=== PATIENT | female | born 1990 | race Caucasian/White ===

== ENCOUNTER → 2017-06-05 | Outpatient (CLI) | payer MEDICAID ==
--- NOTE | 2017-06-05 17:35 | RADIOLOGY REPORT (SQ) ---
EXAM DESCRIPTION: U/S OB 14+ TA/1 GEST W/DOPPLER COMPLETED DATE/TIME: 06/05/2017 5:20 pm REASON FOR STUDY: THREATENED O20.0 THREATENED COMPARISON: None. TECHNIQUE: Static and Dynamic grayscale imaging performed of gravid uterus using transabdominal appr oach. Additional selected color Doppler and spectral images recorded. All stored on PACS. LIMITATIONS: Anatomy evaluation limited by early gestational age. FINDINGS: EGA: 14 weeks 2 days MARKEL: 12/02/2017 EFW: Not calculated PERCENTILE: Not applicable. Fetus less than or equal to [address]: Adequate amount. PLACENTA: Posterior with marginal previa. PRESENTATION: Variable. HEART RATE: 165 beats per minute. MATERNAL ADNEXA: Maternal ovaries not visualized. CERVICAL LENGTH: 3.9 cm. Closed. OTHER: No other significant finding. IMPRESSION: LIVING INTRAUTERINE . ESTIMATED GESTATIONAL AGE 14 WEEKS 2 DAYS WHICH IS CONSISTENT WITH DATES. NO VISUALIZED ANOMALIES HOWEVER RECOMMEND FORMAL ANATOMIC SURVEY BETWEEN 20 AND 22 WEEKS GESTATIONAL AGE. Trimester of : Second trimester - 13 weeks 1 day to 27 weeks 6 days. TECHNICAL DOCUMENTATION: JOB ID: [id number] [employer]- All Rights Reserved
== END ==
LOC: RAD 15:56
PROVIDERS: ATTEND Nurse Practitioner Women's Health
DX: O20.9 Hemorrhage in early pregnancy, unspecified (principal)
CPT/HCPCS: 76805; 93976

== ENCOUNTER 2017-11-22 06:12 | Inpatient (IN) | payer MEDICAID ==
[2017-11-21 14:13] LABS: ABSOLUTE BASOPHILS # (AUTO) 0.1 10^3/uL (0.0-0.2); ABSOLUTE EOSINOPHILS # (AUTO) 0.1 10^3/uL (0.0-0.6); ABSOLUTE LYMPHOCYTES (AUTO) 1.6 10^3/uL (0.5-4.7); ABSOLUTE MONOCYTES (AUTO) 0.6 10^3/uL (0.1-1.4); ABSOLUTE NEUT (AUTO) 6.3 10^3/uL (1.7-8.2); BASOPHILS % (AUTO) 0.6 % (0-2); EOSINOPHILS % (AUTO) 0.8 % (0-6); HEMATOCRIT 30.5 % (36.0-47.0); HEMOGLOBIN 10.4 g/dL (12.0-15.5); LYMPHOCYTES % (AUTO) 18.8 % (13-45); MEAN CORPUSCULAR HEMOGLOBIN 27.7 pg (27.0-33.4); MEAN CORPUSCULAR HGB CONC 34.2 g/dL (32.0-36.0); MEAN CORPUSCULAR VOLUME 81 fl (80-97); PLATELET COUNT 228 10^3/uL (150-450); RED BLOOD COUNT 3.77 10^6/uL (3.72-5.28); RED CELL DISTRIBUTION WIDTH 13.2 % (11.5-14.0); SEGMENTED NEUTROPHILS % (AUTO) 72.8 % (42-78); TOTAL CELLS COUNTED % (AUTO) 100 %; WHITE BLOOD COUNT 8.7 10^3/uL (4.0-10.5)
[2017-11-21 14:20] LABS: APPEARANCE,URINE CLEAR; BILIRUBIN,URINE NEGATIVE (NEGATIVE); COLOR,URINE STRAW; GLUCOSE, URINE NEGATIVE (NEGATIVE); KETONES,URINE NEGATIVE (NEGATIVE); LEUKOCYTE ESTERASE,URINE NEGATIVE (NEGATIVE); NITRITE,URINE NEGATIVE (NEGATIVE); PROTEIN,URINE NEGATIVE (NEGATIVE); URINE SPECIFIC GRAVITY 1.003; UROBILINOGEN,URINE NEGATIVE mg/dL (<2.0)
[2017-11-21 14:41] LABS: URINE AMPHETAMINES SCREEN NEGATIVE; URINE BARBITURATES SCREEN NEGATIVE; URINE BENZODIAZEPINES SCREEN NEGATIVE; URINE COCAINE SCREEN NEGATIVE; URINE MARIJUANA (THC) SCREEN NEGATIVE; URINE METHADONE SCREEN NEGATIVE; URINE PHENCYCLIDINE SCREEN NEGATIVE
[~2017-11-22 06:12] MED LIST: CEFAZOLIN 1 GM/D5W RTU 1 GM/50 ML RTUPB IV PRN; LACTATED RINGERS 1000 ML IV PRN; LIDOCAINE 0.5% INJ-PF (5 MG/ML) 50 ML SDV SUBCUT PRN; RINGERS SOLUTION,LACTATED 1,000 ML IV PRN
[2017-11-22] MEDS: AZITHROMYCIN 500 MG in DEXTROSE 5%-WATER 250 ML IV PRN ×2 (07:39→08:30)
[2017-11-22] MEDS ORDERED: MORPHINE SULFATE 10 MG/ML INJ IV PRN (07:48)
[2017-11-22] MEDS ORDERED: FENTANYL CITRATE INJ/PF 100 MCG/2 ML AMPUL IV PRN ×3 (07:48)
[2017-11-22] MEDS ORDERED: PROMETHAZINE HCL INJ 25 MG/1 ML VIAL IV PRN (07:48)
[2017-11-22] MEDS ORDERED: DIPHENHYDRAMINE HCL 50 MG/ML VIAL IV PRN (07:48)
[2017-11-22] MEDS ORDERED: CITRIC ACID/SODIUM CITRATE ORAL SOLN 15 ML UDCUP ONE (08:34)
[2017-11-22] MEDS ORDERED: OXYTOCIN 10 UNIT/ML VIAL ONE (08:34)
[2017-11-22] MEDS ORDERED: MIDAZOLAM 2 MG/2 ML INJ ONE (08:34)
[2017-11-22] MEDS ORDERED: PHENYLEPHRINE HCL INJ/PF 10 MG/1 ML SDV ONE (08:35)
[2017-11-22] MEDS ORDERED: EPHEDRINE SULFATE INJ 50 MG/1 ML AMPULE ONE (08:35)
[2017-11-22] MEDS ORDERED: ONDANSETRON HCL INJ/PF 4 MG/2 ML SDV ONE (08:35)
[2017-11-22] MEDS ORDERED: ACETAMINOPHEN 100 ML IV ONE (08:35)
--- NOTE | 2017-11-22 09:50 | PDOC DELIVERY SUMMARY ---
Delivery Summary - Maternal Hx : IV Hx # Term Pregnancies: 3 MARKEL: 11/27/17 Gestational Age: 39 Ruptured Membranes: AROM Time of Rupture: 09:05 Fluids: Clear - Delivery Presentation: Vertex Heart Rate Monitoring: Done Pre-Operatively Support Person Present: Yes - PT'S MOTHER Location: OR : Scheduled, Repeat Placenta: Within Normal Limits Delivery of Placenta Date: 11/22/17 Delivery of Placenta Time: 09:06 - Medications Type of Anesthesia:: Spinal - Infant Assess and Care Baby 1 Male Delivery of Date: 11/22/17 Delivery of Infant Time: 09:05 at 1 minute: 8 at 5 minutes: 9 Preprinted Number On Band: [id number] Infant Skin to Skin: No Mode of Transport: Bassinet Delivery Weight: 3,415 Delivery Length: 20.5 in - Delivery Personnel Principal Process Engineer: DR TRISTA Selby RN: Jamie LIVE RN: FABIAN SUN MD: DEMETRIO GUZMAN
[2017-11-22] MEDS ORDERED: OXYTOCIN/NORMAL SALINE 20 UNIT/1,000 ML RTUINJ ONE (10:17)
--- NOTE | 2017-11-22 10:23 | OPERATIVE REPORT E ---
Operative Report NAME: IRA BROWN : 1990 AGE: 27Y DATE OF SURGERY: 11/22/2017 ROOM: 222 PREOPERATIVE DIAGNOSES: 1. IUP at term. 2. Repeat . 3. Desire for sterilization. POSTOPERATIVE DIAGNOSES: 1. IUP at term. 2. Repeat . 3. Desire for sterilization. 4. Multiple adhesions. OPERATION: Repeat low transverse and delivery of viable male, Apgars of 8 and 9, and a bilateral tubal ligation. SURGEON: Maria Luisa GUZMAN M.D. ESTIMATED BLOOD LOSS: Less than 300 mL. TISSUE REMOVED: Placenta and portion of tubes. ANESTHESIA: Spinal. PROCEDURE: The patient was placed in a supine position, rolled on her right side, and prepped and draped in a sterile fashion. Pfannenstiel incision was made through an existing Pfannenstiel eschar. Upon entering the fascia, it was firmly adherent to the anterior uterine wall. Space was made with careful dissection. The uterus nicked in midline and extended bilaterally. The infant was then delivered through the uterine-abdominal incision. Nose and mouth were suctioned with bulb syringe. The cord was clamped. The placenta was manually extracted. The uterus was closed in 2 layers, first a running stitch and second a Lembert stitch imbricating the first layer. Multiple bleeding sites were noted on the left side and controlled with multiple sutures of 2-0 Vicryl gfehhg-ov-aliew sutures. Attention was turned to the tubes. The overlying omentum and parietal peritoneum was carefully dissected until the right fallopian tube could be visualized. The right tube was grasped with the Lott clamp. A tied 0 plain was placed around a knuckle of tissue. A second tie placed again around the knuckle and the knuckle tissue was sharply excised. Hemostasis was noted. Left tube was extremely difficult to find. Again, with triple dissection of the peritoneum and omentum, the tube was identified. A tie of 0 plain was placed around knuckle of tissue after grasping tissue with the Everett clamp. A second tie was placed and a knuckle of tissue was sharply excised. Hemostasis was noted. Again the incision was visualized and there were multiple bleeding sites on the left. These were controlled with multiple mrigly-dc-wmeiv sutures of 2-0 Vicryl. Hemostasis was noted. A Gelfoam was placed on top. Hemostasis was also noted in the other sutured areas. The fascia was then closed with 0 Vicryl and the skin was closed with subcuticular absorbable giovanny. Patient tolerated well and was taken to the recovery room in good condition. Her urine remained clear throughout the procedure. The infant went to nursery in good condition. DICTATING PHYSICIAN: Maria Luisa GUZMAN M.D. [id number] Y#: [id number] ID: [id number] JOB#: [id number] ACCT: [id number] cc:Maria Luisa GUZMAN M.D. >
[2017-11-22] MEDS ORDERED: HYDROMORPHONE HCL INJ/PF 2 MG/ML AMPULE ONE (10:39)
[2017-11-22] MEDS ORDERED: OXYTOCIN/NORMAL SALINE 20 UNIT/1,000 ML RTUINJ INJ PRN (10:47)
[2017-11-22] MEDS ORDERED: DEXTROSE 5%-LACTATED RINGERS 1,000 ML IV PRN (10:48)
[2017-11-22] MEDS ORDERED: OXYCODONE-ACETAMINOPHEN 5-325 MG TABLET PO PRN (11:00)
[2017-11-22] MEDS ORDERED: MEASLES,MUMPS&RUBELLA VACC/PF 0.5 ML VIAL SUBCUT PRN (11:00)
[2017-11-22] MEDS ORDERED: SIMETHICONE 80 MG TAB.CHEW PO PRN (11:00)
[2017-11-22] MEDS ORDERED: ACETAMINOPHEN 325 MG TABLET PO PRN (11:00)
[2017-11-22] MEDS ORDERED: PROMETHAZINE HCL INJ 25 MG/1 ML VIAL IM PRN (11:00)
[2017-11-22] MEDS ORDERED: DIPH/PERTUSS(ACELL)/TETANUS VAC/PF 0.5 ML SYR (>=10YO) IM PRN (11:00)
[2017-11-22] MEDS ORDERED: HYDROMORPHONE HCL INJ/PF 2 MG/ML AMPULE IV PRN (11:00)
[2017-11-22] MEDS: OXYCODONE-ACETAMINOPHEN 5-325 MG TABLET PO PRN ×3 (13:43→22:41)
[2017-11-22] MEDS: DOCUSATE SODIUM 100 MG CAPSULE PO SCH (17:56)
[2017-11-23] MEDS: OXYCODONE-ACETAMINOPHEN 5-325 MG TABLET PO PRN (04:16)
[2017-11-23 06:53] LABS: HEMATOCRIT 24.3 % (36.0-47.0); MEAN CORPUSCULAR HEMOGLOBIN 27.3 pg (27.0-33.4); MEAN CORPUSCULAR HGB CONC 34.1 g/dL (32.0-36.0); MEAN CORPUSCULAR VOLUME 80 fl (80-97); PLATELET COUNT 188 10^3/uL (150-450); RED BLOOD COUNT 3.04 10^6/uL (3.72-5.28); RED CELL DISTRIBUTION WIDTH 13.3 % (11.5-14.0); WHITE BLOOD COUNT 10.1 10^3/uL (4.0-10.5)
[2017-11-23 07:01] LABS: HEMOGLOBIN 8.3 g/dL (12.0-15.5)
[2017-11-23] MEDS: DOCUSATE SODIUM 100 MG CAPSULE PO SCH ×2 (09:53→17:45)
[2017-11-23] MEDS: PRENATAL VITAMIN W DHA CAPSULE PO SCH (09:53)
--- NOTE | 2017-11-23 12:14 | PDOC PROGRESS REPORT ---
Subjective-OB Subjective: Post Delivery Day: 27 year old. Denies any needs at this time. wihout problems, tolerating diet, passing gas, bleeding slowing and pain controlled with current medications. Physical Exam (OB) Vital Signs: Temp Pulse Resp BP Pulse Ox 98.1 F 74 17 118/75 100 11/23/17 07:51 11/23/17 07:51 11/23/17 07:51 11/23/17 07:51 11/23/17 07:51 Intake & Output 11/22/17 11/23/17 11/24/17 06:59 06:59 06:59 Intake Total 640 Output Total 3000 Balance -2360 Weight 75 kg - Dressing Removed: No Incision: Dressing - dry and intact - Abdomen Description: Tender Hernia Present: No Fundal Description: Firm, Midline Describe if Not Midline: Deviated to right of umbilicus. Fundal Height: u/u - u/2 - Extremities Lower extremities: Lori's sign - neg Calf: Normal, Nontender Objective-Diagnostic Laboratory: 11/23/17 06:44 11/23/17 11/23/17 06:44 06:44 WBC 10.1 RBC 3.04 L Hgb 8.3 L D Hct 24.3 L MCV 80 MCH 27.3 MCHC 34.1 RDW 13.3 Plt Count 188 Blood Type O NEGATIVE Assessment and Plan(PN) - Assessment and Plan (1) delivery delivered Is this a current diagnosis for this admission?: Yes - Time Spent with Patient Time with patient: Less than 15 minutes - Disposition Anticipated Discharge: Home Within: within 24 hours
[2017-11-23] MEDS: IBUPROFEN 800 MG TABLET PO SCH ×2 (12:50→17:44)
[2017-11-24] MEDS: IBUPROFEN 800 MG TABLET PO SCH ×3 (06:33→12:13)
[2017-11-24] MEDS: PRENATAL VITAMIN W DHA CAPSULE PO SCH (09:22)
[2017-11-24] MEDS: DOCUSATE SODIUM 100 MG CAPSULE PO SCH (09:22)
--- NOTE | 2017-11-24 13:34 | PDOC DISCHARGE SUMMARY ---
Final Diagnosis Discharge Date: 11/24/17 - Final Diagnosis (1) Status post repeat low transverse section Is this a current diagnosis for this admission?: Yes (2) Tubal ligation status Is this a current diagnosis for this admission?: Yes (3) Anemia complicating , third trimester Is this a current diagnosis for this admission?: Yes (4) Acute blood loss anemia Is this a current diagnosis for this admission?: Yes (5) delivery delivered Is this a current diagnosis for this admission?: Yes Discharge Data - Discharge Medication Prescriptions: Oxycodone HCl/Acetaminophen [Percocet 5-325 mg Tablet] 1 tab PO Q4HP PRN #20 tablet PRN Reason: Ibuprofen [Motrin 800 mg Tablet] 800 mg PO Q8HP PRN #60 tablet PRN Reason: Docusate Sodium [Colace 100 mg Capsule] 100 mg PO BID #60 capsule Ferrous Sulfate [Feosol 325 mg Tablet] 325 mg PO BID #60 tab Vit,Calc76/Iron/Folic [Prenatabs Rx Tablet] 1 each PO DAILY #30 tablet Home Medications: Docusate Sodium [Colace 100 mg Capsule] 100 mg PO BID #60 capsule 11/24/17 Ferrous Sulfate [Feosol 325 mg Tablet] 325 mg PO BID #60 tab 11/24/17 Ibuprofen [Motrin 800 mg Tablet] 800 mg PO Q8HP PRN #60 tablet 11/24/17 Oxycodone HCl/Acetaminophen [Percocet 5-325 mg Tablet] 1 tab PO Q4HP PRN #20 tablet 11/24/17 Vit,Calc76/Iron/Folic [Prenatabs Rx Tablet] 1 each PO DAILY #30 tablet 11/24/17 Reason(s) for Admission: Ceasarean Section-Repeat, Tubal Ligation Procedures: Ultrasound Intrapartum Procedure(s): : Low Cervical, Transverse, Tubal Ligation - Diagnosis Test Laboratory: Temp Pulse Resp BP Pulse Ox 98.6 F 89 17 113/69 99 11/24/17 08:03 11/24/17 08:03 11/24/17 08:03 11/24/17 08:03 11/24/17 08:03 11/21/17 11/21/17 11/23/17 13:45 13:58 06:44 RBC 3.77 3.04 L Hgb 10.4 L 8.3 L D Hct 30.5 L 24.3 L Urine Opiates Screen NEGATIVE - Discharge information/Instructions Discharge Activity: Activity As Tolerated, Balance Activity w/Rest, No Lifting Over 10 Pounds, Pelvic Rest, No tub bath, Walk Frequently Discharge Diet: Regular Disposition: HOME, SELF-CARE Follow up with: [facility] in: 1, Weeks - incision check
[2017-11-24 13:45] VITALS: BP 115/70
== END 2017-11-24 15:35 | disposition home or self-care (01) | DRG 765 ==
LOC: UNDOADMIN 06:12 → 2S 06:12
PROVIDERS: ADMIT Obstetrics & Gynecology Gynecology; ATTEND Obstetrics & Gynecology Gynecology
PROC: 0W3J0ZZ Control Bleeding in Pelvic Cavity, Open Approach (ICD-10-PCS; 2017-11-22)
PROC: 0UB70ZZ Excision of Bilateral Fallopian Tubes, Open Approach (ICD-10-PCS; 2017-11-22)
PROC: 0UN60ZZ Release Left Fallopian Tube, Open Approach (ICD-10-PCS; 2017-11-22)
PROC: 10D00Z1 Extraction of Products of Conception, Low, Open Approach (ICD-10-PCS; principal; 2017-11-22 09:00)
PROC: 3E0234Z Introduction of Serum, Toxoid and Vaccine into Muscle, Percutaneous Approach (ICD-10-PCS; 2017-11-23)
DX: O34.211 Maternal care for low transverse scar from previous cesarean delivery (principal); O36.0930 Maternal care for other rhesus isoimmunization, third trimester, not applicable or unspecified; D62 Acute posthemorrhagic anemia; O99.89 Other specified diseases and conditions complicating pregnancy, childbirth and the puerperium; N73.6 Female pelvic peritoneal adhesions (postinfective); O67.8 Other intrapartum hemorrhage; O90.81 Anemia of the puerperium; Z3A.39 39 weeks gestation of pregnancy; Z37.0 Single live birth; Z30.2 Encounter for sterilization
CPT/HCPCS: 1961; 36415; 59025; 80307; 81001; 85025; 85027; 85461; 86850; 86870; 86900; 86901; 86920; 86922; 88302; 94799; J0131; J0456; J0690; J1170; J2250; J2370; J2405; J2590; J2790; J3490; J7060; J7120